=== PATIENT | male | born 1965 | race Caucasian/White ===

== ENCOUNTER 2020-09-27 07:30 | Day surgery (SDC) | payer OTHER ==
[~2020-09-27] VITALS: Ht 175.3 cm; Wt 70.6 kg
[2020-09-27 08:08] VITALS: BP 135/90
[2020-09-27] MEDS ORDERED: CEFAZOLIN PMX 1GM/50ML 50 ML ONE (08:13)
[2020-09-27] MEDS ORDERED: LACTATED RINGERS 1,000 ML IV SCH (08:30)
[2020-09-27] MEDS ORDERED: CEFAZOLIN PMX 1GM/50ML 50 ML IV ONE (08:30)
[2020-09-27] MEDS ORDERED: LIDOCAINE 1%, 20ML ONE (09:36)
[2020-09-27] MEDS ORDERED: NALOXONE 1 MG/ML, 2ML ONE (09:45)
[2020-09-27] MEDS ORDERED: FLUMAZENIL 0.1 MG/1 ML, 5ML ONE (09:45)
[2020-09-27] MEDS ORDERED: FENTANYL PF 100 MCG/2ML ONE (09:45)
[2020-09-27] MEDS ORDERED: MIDAZOLAM 1 MG/ML, 5ML ONE (09:45)
[2020-09-27] MEDS ORDERED: ACETAMINOPHEN 325 MG TABLET ONE (10:58)
[2020-09-27] MEDS ORDERED: ACETAMINOPHEN 325 MG TABLET PO PRN (11:00)
== END 2020-09-27 11:40 | disposition home or self-care (01) ==
LOC: OUT 07:30
PROVIDERS: ATTEND Internal Medicine Hematology & Oncology
DX: Z45.2 Encounter for adjustment and management of vascular access device (principal); C43.9 Malignant melanoma of skin, unspecified
CPT/HCPCS: 36561; 76937; 77001; 99156; 99157; C1788; J0690; J1642; J2250; J3010; J7120; J2310